=== PATIENT | male | born 1960 | race Caucasian/White ===

== ENCOUNTER 2021-11-19 14:54 | Outpatient (CLI) | payer MEDICARE, MEDICAID, SELFPAY ==
--- NOTE | ~2021-11-19 | XR_ITS ---
EXAM: XR knee RT 3V DATE: 11/19/2021 15:13 HISTORY: anterior RT knee pain x 1 mo NKI . COMPARISON: None available. FINDINGS: Normal mineralization. No fracture or dislocation. No lytic or blastic lesion. Mild medial joint space narrowing and tricompartmental osteophytosis. No erosion or periosteal change. Small-vol ume joint fluid. Soft tissues within normal limits. IMPRESSION: Mild tricompartmental osteoarthritis. Small right knee joint effusion. Reviewed, dictated and finalized at location K. IMPRESSION: Mild tricompartmental osteoarthritis. Small right knee joint effusi on.
== END 2021-11-19 14:55 | disposition home or self-care (01) ==
LOC: CHSIMG 14:57
PROVIDERS: PCP Family Medicine; Visit Provider Family Medicine
DX: M25.569 Pain in unspecified knee (principal)
CPT/HCPCS: 73562

== ENCOUNTER 2022-08-24 10:23 | Outpatient (CLI) | payer MEDICARE, MEDICAID, SELFPAY ==
--- NOTE | ~2022-08-24 | MR_ITS ---
EXAMINATION: MR knee RT wo con DATE: 08/24/2022 11:08 INDICATION: Right knee pain TECHNIQUE: Magnetic resonance imaging (MRI) of the right knee was performed without intravenous contr ast. Sequences included coronal PD-weighted FSE, coronal PD-weighted FS FSE, sagittal T2-weighted FS E, sagittal PD-weighted FS FSE and axial PD weighted fat saturated FSE. COMPARISON: None. FINDINGS: Medial compartment: Complex tear of the body and posterior horn of the medial meniscus which includes both vertical and h orizontal tear planes. There is mild partial-thickness cartilage loss with smooth chondral surface al bridget the medial tibial plateau most prominent along the medial rim and along the medial femoral condyl e most prominent posteriorly. There is some chondral fissuring with chondral surface irregularity shoaib ng the anterior weightbearing medial femoral condyle. Lateral compartment: Lateral meniscus is normal. Additional partial thickness cartilage loss with smooth chondral surface along the posterior weightbearing lateral femoral condyle. Patellofemoral compartment: Shallow chondral fissuring along the lateral patellar facet. Tiny focus of subarticular edema-like si gnal change at the medial patellar facet likely related to deeper overlying chondral fissure. Mild pa rtial-thickness cartilage loss with smooth chondral surface along the inferior trochlea. Ligaments and tendons: Anterior and posterior cruciate ligaments are normal. The fibular collateral ligament complex is norm al. There is mild edema extending along the deep and superficial margins of the otherwise normal-appe aring medial collateral ligament which could be due to low-grade sprain in the setting of recent trau ma which is not reported as reactive edema related to the adjacent meniscal tear. The extensor mechan ism is normal. The visualized medial and lateral hamstring tendons as well as the iliotibial band are normal. Fluid: Physiologic amount of fluid in the joint space. No loose osteochondral bodies identified. There is a ganglion cyst extending caudally along the posterior margin of the distal semimembranosus tendon whic h measures 4.3 cm length by 1.6 x 0.8 cm in maximal orthogonal dimensions. Additional smaller ganglio n cyst measuring 1.8 x 1.3 x 0.9 cm extending from the posterior margin of the lateral posterior horn of the medial meniscus posterior to the posterior cruciate ligament, potentially representing a para meniscal cyst related to the medial meniscal tear. Osseous/other: Bone alignment is normal. No fracture or pathologic marrow replacing process. IMPRESSION: 1. Complex medial meniscal tear. 2. Mild tricompartmental osteoarthritis. 3. Edema along the otherwise normal-appearing medial collateral ligament which could be seen with a l ow-grade sprain but more likely represents reactive edema related to the adjacent meniscal tear. Reviewed, dictated and finalized at location A. IMPRESSION: 1. Complex medial meniscal tear. 2. Mild tricompartmental osteoarthritis. 3. Edema along the otherwise normal-appearing medial collateral ligament which could be seen with a low-grade sprain but more likely represents reactive edema related to the adjacent meniscal tear.
== END 2022-08-24 10:24 | disposition home or self-care (01) ==
LOC: CHSIMG 10:26
PROVIDERS: PCP Family Medicine; Visit Provider Family Medicine
DX: M25.561 Pain in right knee (principal); R60.9 Edema, unspecified; M17.11 Unilateral primary osteoarthritis, right knee
CPT/HCPCS: 73721